=== PATIENT | female | born 1960 | race Caucasian/White ===

== ENCOUNTER → 2016-10-19 | Outpatient (CLI) | payer BC ==
--- NOTE | 2016-10-20 08:16 | MM ---
Reason for exam: screening (asymptomatic). Last mammogram was performed 1 year ago. History: Family history of breast cancer in mother at age 55. Benign MG stereo VAD BX RT of the right breast, October 11, 2013. Taking hormonal contraceptives for 25 years beginning at age 24. Physical Findings: A clinical breast exam by your physician is recommended on an annual basis and results should be correlated with mammographic findings. MG Screening Mammo w CAD Bilateral CC and MLO view(s) were taken. Prior study comparison: October 17, 2015, bilateral MG screening mammo w CAD. October 14, 2014, bilateral MG screening mammo w CAD. The breast tissue is heterogeneously dense. This may lower the sensitivity of mammography. Benign calcifications. There is chronic nodularity bilaterally. There is no dominant lesion. No significant changes when compared with prior studies. ASSESSMENT: Benign, BI-RAD 2 RECOMMENDATION: Routine screening mammogram of both breasts in 1 year.
== END | disposition home or self-care (01) ==
LOC: RADMAMWWP 08:27
PROVIDERS: ATTEND Family Medicine
DX: Z12.31 Encounter for screening mammogram for malignant neoplasm of breast (principal)

== ENCOUNTER → 2018-11-07 | Outpatient (CLI) | payer BC ==
--- NOTE | 2018-11-09 10:37 | MM ---
Reason for exam: screening (asymptomatic). Last mammogram was performed 1 year ago. History: Family history of breast cancer in mother at age 55. Benign MG stereo VAD BX RT of the right breast, October 11, 2013. Taking hormonal contraceptives for 25 years beginning at age 24. Physical Findings: A clinical breast exam by your physician is recommended on an annual basis and results should be correlated with mammographic findings. MG 3D Screening Mammo W/Cad Bilateral CC and MLO view(s) were taken. Prior study comparison: November 03, 2017, bilateral MG screening mammo w CAD. October 19, 2016, bilateral MG screening mammo w CAD. The breast tissue is heterogeneously dense. This may lower the sensitivity of mammography. Previous mammotome biopsy in the right breast. No significant changes when compared with prior studies. ASSESSMENT: Benign, BI-RAD 2 RECOMMENDATION: Routine screening mammogram of both breasts in 1 year.
== END | disposition home or self-care (01) ==
LOC: RADMAMWWP 13:50
PROVIDERS: ATTEND Family Medicine
DX: Z12.31 Encounter for screening mammogram for malignant neoplasm of breast (principal); Z80.3 Family history of malignant neoplasm of breast
CPT/HCPCS: 77063; 77067

== ENCOUNTER → 2020-01-07 | Outpatient (CLI) | payer BC ==
--- NOTE | 2020-01-09 09:56 | MM ---
Reason for exam: screening (asymptomatic). Last mammogram was performed 1 year and 2 months ago. History: Family history of breast cancer in mother at age 55. Benign MG stereo VAD BX RT of the right breast, October 11, 2013. Taking hormonal contraceptives for 25 years beginning at age 24. Physical Findings: A clinical breast exam by your physician is recommended on an annual basis and results should be correlated with mammographic findings. MG Screening Mammo w CAD Bilateral CC and MLO view(s) were taken. Prior study comparison: November 07, 2018, bilateral MG 3d screening mammo w/cad. November 03, 2017, bilateral MG screening mammo w CAD. The breast tissue is heterogeneously dense. This may lower the sensitivity of mammography. Previous mammotome biopsy in the right breast with associated asymmetric densities on CC view, stable. No significant changes when compared with prior studies. ASSESSMENT: Benign, BI-RAD 2 RECOMMENDATION: Routine screening mammogram of both breasts in 1 year.
== END | disposition home or self-care (01) ==
LOC: RADMAMWWP 10:58
PROVIDERS: ATTEND Family Medicine
DX: Z12.31 Encounter for screening mammogram for malignant neoplasm of breast (principal)
CPT/HCPCS: 77067

== ENCOUNTER → 2021-02-06 | Outpatient (CLI) | payer BC ==
--- NOTE | 2021-02-09 12:24 | MM ---
Reason for exam: screening (asymptomatic). Last mammogram was performed 1 year and 1 month ago. History: Family history of breast cancer in mother at age 55. Benign MG stereo VAD BX RT of the right breast, October 11, 2013. Taking hormonal contraceptives for 25 years beginning at age 24. Physical Findings: A clinical breast exam by your physician is recommended on an annual basis and results should be correlated with mammographic findings. MG Screening Mammo w CAD Bilateral CC and MLO view(s) were taken. Prior study comparison: January 07, 2020, bilateral MG screening mammo w CAD. November 07, 2018, bilateral MG 3d screening mammo w/cad. The breast tissue is heterogeneously dense. This may lower the sensitivity of mammography. There are benign appearing round calcifications bilaterally. There is no discrete abnormality. ASSESSMENT: Benign, BI-RAD 2 RECOMMENDATION: Routine screening mammogram of both breasts in 1 year.
== END | disposition home or self-care (01) ==
LOC: RADMAMWWP 13:33
PROVIDERS: ATTEND Family Medicine
DX: Z12.31 Encounter for screening mammogram for malignant neoplasm of breast (principal); Z80.3 Family history of malignant neoplasm of breast
CPT/HCPCS: 77067

== ENCOUNTER → 2022-02-24 | Outpatient (CLI) | payer BC ==
--- NOTE | 2022-02-25 18:55 | MM ---
Reason for Exam: Screening (asymptomatic). Last screening mammogram was performed 12 month(s) ago. Patient History: Menarche at age 14. First Full-Term at age 24. Perimenopausal. Currently using Hormonal Contraceptives, beginning at age 24 for 25 years. 10/11/2013, Benign Core Biopsy on the right side. Mother had breast cancer, age 55. Risk Values: Kaya 5 year model risk: 3.1%. NCI Lifetime model risk: 16.2%. Prior Study Comparison: 10/17/2015 Bilateral Screening Mammogram, [facility]. 10/19/2016 Bilateral Screening Mammogram, [facility]. 11/03/2017 Bilateral Screening Mammogram, [facility]. 11/07/2018 Bilateral Screening Mammogram, [facility]. 01/07/2020 Bilateral Screening Mammogram, [facility]. 02/06/2021 Bilateral Screening Mammogram, [facility]. Tissue Density: The breast tissue is heterogeneously dense. This may lower the sensitivity of mammography. Findings: Analyzed By CAD. Unchanged nodular breast tissue particularly along the lateral aspect of the right breast. Microclip superiorly on the right from prior biopsy. No significant change from prior exams. Overall Assessment: Benign, BI-RAD 2 Management: Screening Mammogram of both breasts in 1 year. 1. Note that per NCCN guidelines, a five-year risk assessment greater than 1.67% is used to assess eligibility for a risk reducing agent. 2. Patient should continue monthly self breast exams. 3. This exam should not preclude additional follow-up of suspicious palpable abnormalities. Electronically signed and approved by: Blossom Colorado M.D. Radiologist
== END | disposition home or self-care (01) ==
LOC: RADMAMWWP 13:43
PROVIDERS: ATTEND Family Medicine
DX: Z12.31 Encounter for screening mammogram for malignant neoplasm of breast (principal); Z80.3 Family history of malignant neoplasm of breast
CPT/HCPCS: 77067

== ENCOUNTER → 2023-03-01 | Outpatient (CLI) | payer BC ==
--- NOTE | 2023-03-02 08:49 | MM ---
Reason for Exam: Screening (asymptomatic). Last screening mammogram was performed 12 month(s) ago. Patient History: Menarche at age 14. First Full-Term at age 24. Perimenopausal. Currently using Hormonal Contraceptives, beginning at age 24 for 25 years. 10/11/2013, Benign Core Biopsy on the right side. Mother had breast cancer, age 55. Last menstrual period: 02/08/2023 Risk Values: Kaya 5 year model risk: 3.2%. NCI Lifetime model risk: 15.8%. Prior Study Comparison: 01/07/2020 Bilateral Screening Mammogram, [facility]. 02/06/2021 Bilateral Screening Mammogram, [facility]. 02/24/2022 Bilateral MG screening mammo w CAD, [facility]. Tissue Density: The breast tissue is heterogeneously dense. This may lower the sensitivity of mammography. Findings: Analyzed By CAD. There is no suspicious group of microcalcifications or new suspicious mass. Benign-appearing calcifications bilaterally. Overall Assessment: Benign, BI-RAD 2 Management: Screening Mammogram of both breasts in [address] [facility] will attempt to contact patient to return for supplemental views and ultrasound if indicated. Patient should continue monthly self-breast exams. A clinical breast exam by your physician is recommended on an annual basis. This exam should not preclude additional follow-up of suspicious palpable abnormalities. Note on Kaya scores and lifetime risk: 1. A Kaya score greater than 3% is considered moderate risk. If this is the case, consider specialist referral to assess eligibility for a risk reducing agent. 2. If overall lifetime risk for the development of breast cancer is 20% or higher, the patient may qualify for future screening with alternating mammogram and breast MRI. Electronically signed and approved by: Jc Browne DO
== END | disposition home or self-care (01) ==
LOC: RADMAMWWP 07:30
PROVIDERS: ATTEND Family Medicine
DX: Z12.31 Encounter for screening mammogram for malignant neoplasm of breast (principal); Z80.3 Family history of malignant neoplasm of breast
CPT/HCPCS: 77067

== ENCOUNTER → 2024-03-08 | Outpatient (CLI) | payer BC ==
--- NOTE | 2024-03-08 16:52 | MM ---
Reason for Exam: Screening (asymptomatic). Last mammogram was performed 1 year(s) and 1 month(s) ago. Patient History: Menarche at age 14. First Full-Term at age 24. Perimenopausal. Currently using Hormonal Contraceptives, beginning at age 24 for 25 years. 10/11/2013, Benign Core Biopsy on the right side. Mother had breast cancer, age 55. Risk Values: Kaya 5 year model risk: 3.4%. NCI Lifetime model risk: 15.4%. Prior Study Comparison: 02/06/2021 Bilateral Screening Mammogram, [facility]. 02/24/2022 Bilateral MG screening mammo w CAD, [facility]. 03/01/2023 Bilateral MG screening mammo w CAD, [facility]. Tissue Density: The breasts are heterogeneously dense, which may obscure small masses. Findings: Analyzed By CAD. The pattern is symmetrical. Scattered benign round calcifications are present bilaterally. There are grouped punctate calcifications within the 3:00 anterior mid right breast. Additional workup with magnification views is recommended Left breast: No suspicious groups of microcalcifications, spiculated or lobular masses, architectural distortion or other secondary signs of malignancy are mammographically apparent. Overall Assessment: Incomplete: need additional imaging evaluation, BI-RAD 0 Management: Diagnostic Mammogram of the right breast. A negative mammogram report should not preclude additional follow up of suspicious palpable abnormalities. Patient should continue monthly self breast exam. A clinical breast exam by your physician is recommended on an annual basis and results should be correlated with mammographic findings. Note on Kaya scores and lifetime risk: 1. A Kaya score greater than 3% is considered moderate risk. If this is the case, consider specialist referral to assess eligibility for a risk reducing agent. 2. If overall lifetime risk for the development of breast cancer is 20% or higher, the patient may qualify for future screening with alternating mammogram and breast MRI. [facility], , 03/08/2024 4:49 PM. Electronically signed and approved by: Adi Miguel D.O. Radiologis
== END | disposition home or self-care (01) ==
LOC: RADMAMWWP 07:39
PROVIDERS: ATTEND Family Medicine
DX: Z12.31 Encounter for screening mammogram for malignant neoplasm of breast (principal); Z80.3 Family history of malignant neoplasm of breast; R92.333 Mammographic heterogeneous density, bilateral breasts
CPT/HCPCS: 77067

== ENCOUNTER → 2024-03-14 | Outpatient (CLI) | payer BC ==
--- NOTE | 2024-03-14 14:07 | MM ---
Reason for Exam: Follow-up at short interval from prior study. Last screening mammogram was performed less than 1 month ago. Patient History: Menarche at age 14. First Full-Term at age 24. Perimenopausal. Currently using Hormonal Contraceptives, beginning at age 24 for 25 years. 10/11/2013, Benign Core Biopsy on the right side. Mother had breast cancer, age 55. Risk Values: Kaya 5 year model risk: 3.4%. NCI Lifetime model risk: 15.4%. Tissue Density: Right: There are scattered areas of fibroglandular density. Findings: Analyzed By CAD. Grouped calcifications are seen dating back to at least 01/07/2020. There has been no magnification views up until today's exam. Short-term follow-up in 6 months with magnification views recommended to ensure stability. Overall Assessment: Probably benign, BI-RAD 3 Management: Diagnostic Mammogram of the right breast in 6 months. Follow-up in 6 months with magnification view right breast CC view to compare with today's exam. Results were given to the patient verbally at the time of exam. Patient should continue monthly self-breast exams. A clinical breast exam by your physician is recommended on an annual basis. This exam should not preclude additional follow-up of suspicious palpable abnormalities. Note on Kaya scores and lifetime risk: 1. A Kaya score greater than 3% is considered moderate risk. If this is the case, consider specialist referral to assess eligibility for a risk reducing agent. 2. If overall lifetime risk for the development of breast cancer is 20% or higher, the patient may qualify for future screening with alternating mammogram and breast MRI. [facility], , 03/14/2024 2:00 PM. Electronically signed and approved by: Jc Browne DO
== END | disposition home or self-care (01) ==
LOC: RADMAMWWP 13:14
PROVIDERS: ATTEND Family Medicine
DX: R92.8 Other abnormal and inconclusive findings on diagnostic imaging of breast (principal); R92.323 Mammographic fibroglandular density, bilateral breasts; Z80.3 Family history of malignant neoplasm of breast
CPT/HCPCS: 77061; 77065

== ENCOUNTER → 2024-09-14 | Outpatient (CLI) | payer BC ==
--- NOTE | 2024-09-17 06:52 | MM ---
Reason for Exam: Follow-up at short interval from prior study. Last screening mammogram was performed 6 month(s) ago. Patient History: Menarche at age 14. First Full-Term at age 24. Postmenopausal. Hormonal Contraceptives, starting at age 24 for 25 years. 10/11/2013, Benign Core Biopsy on the right side. Paternal aunt had breast cancer, age 45. Paternal cousin had breast cancer, age 48. Mother had breast cancer, age 55. Risk Values: Kaya 5 year model risk: 3.5%. NCI Lifetime model risk: 15.0%. Prior Study Comparison: 03/01/2023 Bilateral MG screening mammo w CAD, [facility]. 03/08/2024 Bilateral MG screening mammo w CAD, [facility]. 03/14/2024 Right MG 3D work up w/cad RT, [facility]. Tissue Density: Right: The breasts are heterogeneously dense, which may obscure small masses. Findings: Analyzed By CAD. Biopsy clip right breast redemonstrated. There are a few scattered wall calcifications bilaterally redemonstrated. Stable anterior central tiny benign-appearing round calcifications seen best on MLO view on today's study. Benign-appearing right axillary lymph nodes again seen. No suspicious new mass or distortion in the right breast. Overall Assessment: Benign, BI-RAD 2 Management: Screening Mammogram of both breasts in 6 months. Return to routine follow-up. Results were given to the patient verbally at the time of exam. Patient should continue monthly self-breast exams. A clinical breast exam by your physician is recommended on an annual basis. This exam should not preclude additional follow-up of suspicious palpable abnormalities. Note on Kaya scores and lifetime risk: 1. A Kaya score greater than 3% is considered moderate risk. If this is the case, consider specialist referral to assess eligibility for a risk reducing agent. 2. If overall lifetime risk for the development of breast cancer is 20% or higher, the patient may qualify for future screening with alternating mammogram and breast MRI. [facility], , 09/14/2024 11:46 AM. Electronically signed and approved by: Evaristo Rosenberg M.D.
== END | disposition home or self-care (01) ==
LOC: RADMAMWWP 11:23
PROVIDERS: ATTEND Family Medicine
DX: R92.8 Other abnormal and inconclusive findings on diagnostic imaging of breast (principal); R92.331 Mammographic heterogeneous density, right breast; Z78.0 Asymptomatic menopausal state; Z80.3 Family history of malignant neoplasm of breast; Z92.0 Personal history of contraception
CPT/HCPCS: 77061; 77065